=== PATIENT | male | born 1960 | race Caucasian/White ===

== ENCOUNTER 2022-10-21 08:48 | Outpatient (CLI) | payer BC, SELFPAY ==
[2022-10-21 13:36] LABS: Chloride* 106 mmol/L (96-114); Potassium* 4.7 mmol/L (3.6-5.1); Sodium* 141 mmol/L (135-149)
[2022-10-21 13:38] LABS: Cholesterol* 185 mg/dL (90-199)
[2022-10-21 13:39] LABS: Blood Urea Nitrogen* 9 mg/dL (7-30); Calcium* 9.4 mg/dL (8.4-10.6); Carbon Dioxide* 31 mmol/L (20-32); Creatinine* 0.7 mg/dL (0.5-1.5); Estimated Glomerular Filt Rate 104 ml/min; Glucose* 95 mg/dL (60-115); Triglycerides* 74 mg/dL (40-149)
[2022-10-21 13:40] LABS: HDL Cholesterol* 80 mg/dL (>=40); LDL Cholesterol Calculated 90 mg/dL (<100)
[2022-10-21 14:07] LABS: PSA Screen* 0.69 ng/mL (0.10-4.00)
== END 2022-10-21 08:49 | disposition home or self-care (01) ==
PROVIDERS: PCP Family Medicine; Visit Provider Family Medicine
DX: Z00.00 Encounter for general adult medical examination without abnormal findings (principal); I10 Essential (primary) hypertension; Z13.6 Encounter for screening for cardiovascular disorders; Z12.5 Encounter for screening for malignant neoplasm of prostate
CPT/HCPCS: 80048; 80061; 84153